=== PATIENT | male | born 1985 | race Two or more races ===

== ENCOUNTER 2023-03-13 15:28 | Outpatient (REF) | payer MEDICAID, SELFPAY ==
[2023-03-14 03:45] LABS: CT PCR NOT DETECTED (Not Detect.); NG PCR NOT DETECTED (Not Detect.)
== END 2023-03-13 15:29 | disposition home or self-care (01) ==
LOC: HO.HHCL 15:28
PROVIDERS: Visit Provider General Practice
DX: A64 Unspecified sexually transmitted disease (principal)
CPT/HCPCS: 0353U

== ENCOUNTER 2024-08-13 14:28 | Outpatient (REF) | payer MEDICAID, SELFPAY ==
[2024-08-13 16:35] LABS: Estimated Average Glucose 123 mg/dL; Hemoglobin A1C 164.8011 umol/L; Hemoglobin A1c % 5.9 % (<6.0); Total Hemoglobin (HGBA1C) 4031.6197 umol/L
--- OUTSIDE RECORDS SUMMARY | 2024-08-13 17:19 | XMS_ITS | Clinical Summary ---
Author Organization [facility] ity Address [address] [place] [address] Care Team Providers Care Medical Scientist Name Role Phone Unavailable Primary Care Provider Unavailabl e Social History Tobacco Use Types Packs/Day Years Used Date Smoking Tobacco: Never Assessed Sex and Gender Information Value Date Recorded Sex Assigned at Not on file Legal Sex Male 9:01 PM EST Gender Identity Not on file Sexual Orientation Not on file Plan of Treatment Health Maintenance Due Date Last Done Comments DTaP,Tdap,and Td Vaccines (1 - Tdap) 2002 Hepatitis B Vaccines (1 of 3 - 19+ 3-dose series) 2002 Cholesterol Screening (Lipid Panel) 05/19/2023 Depression Screening 05/19/2023 HIV Screening 05/19/2023 Hepatitis C Screening 05/19/2023 Social Influencers of Health Screening 05/19/2023 COVID-19 Vaccine (2023-2 5 season) 2023 Influenza Vaccine (Season Ended) 2024 HIB Vaccines Aged Out No longer eligi ble based on patient's age to complete this topic HPV Vaccines Aged Out No longer eligi ble based on patient's age to complete this topic Hepatitis A Vaccines Aged Out No long er eligible based on patient's age to complete this topic IPV Vaccines Aged Out No longer eligi ble based on patient's age to complete this topic MMR Vaccines Aged Out No longer eligi ble based on patient's age to complete this topic Meningococcal ACWY Vaccine Aged Out N o longer eligible based on patient's age to complete this topic Meningococcal B Vaccine Aged Out No l onger eligible based on patient's age to complete this topic Pneumococcal Vaccine: Pediat rics (0 to 5 Years) and At-Risk Patients (6 to 64 Years) Aged Out No longer eligible b ased on patient's age to complete this topic RSV Immunization Patients Un nicholas 20 months Aged Out No longer eligible b ased on patient's age to complete this topic Varicella Vaccines Aged Out No longer eligible based on patient's age to complete this topic
--- OUTSIDE RECORDS SUMMARY | 2024-08-13 17:19 | XMS_ITS | Clinical Summary ---
Author Organization [employer] Address [address] [facility] [address] [place] [address] Care Team Providers Care Plasma Table Operator Name Role Phone Diana Mckeon MD Primary Care Provider [phone] Allergies No known active allergies Medications * This document contains information received from the source organization and may not represent a complete record from that organization. albuterol 108 (90 Base) MCG/ACT inhalerIndicati ons:Wheezing Inhale 2 puffs every 6 (six) hours if needed for wheezing. 18 g 11 4 04/09/20 25 Active buPROPion XL (Wellbutrin XL) 150 MG 24 hr tablet take 1 tablet by oral route every day for mood stability 90 tablet 3 4 Active cyclobenzaprine (Flexeril) 5 MG tablet take 1 tablet by oral route 3 times every day for muscle pain/spasm 30 tablet 3 4 Active prazosin (Minipress) 1 MG capsule TAKE 1 CAPSULE BY MOUTH DAILY AT BEDTIME FOR anger. MAY INCREASE TO 3 CAPSULES DIRECTED 90 capsule 3 5 Active Diclofenac Sodium 1 % gel Apply thin layer by topical route (quantity as directed on package insert) to affected area of pain 3 times daily as needed. 50 g 3 5 Active naproxen (Naprosyn) 500 MG tablet Take 1 tablet (500 mg) by mouth every 12 (twelve) hours. With food 60 tablet 3 4 07/18/19 25 Discontinu ed(Ineffec tive) Active Problems Problem Noted Date Diagnosed Date Class 3 severe obesity with body mass index (BMI) of 45.0 to 49.9 in adult 04/22/2024 Assessment & Plan (07/22/2024 7:58 PM EDT): Reviewed options for weight loss medications and bariatric surgery He would prefer to start with changing eating habits and returning to daily bike riding PTSD (post-traumatic stress disorder) 08/31/2023 Assessment & Plan (09/06/2023 1:58 PM EDT): During IBH Consult Abdi presenting with depressed mood, loss of interests/pleasure , changes in sleep difficulty falling asleep, psychomotor retardation, trouble concentrating, thoughts of worthlessness or guilt, fatigue/loss of energy, inappropriate guilt , hopelessness, worthlessness , difficulty concentrating, excessive worry/anxiety, difficulty controlling worry, restless/keyed up/On edge, easily fatigued, difficulty concentrating/Mind going blank , and irritability, and Intrusive trauma memories and thoughts, Nightmares/night terrors, Avoidance of trauma reminders/triggers, Fear and distrust in relationships, Isolation from normal social supports, Fear of social judgement, and Difficulty with crowds for a period of 24+mo, for all symptoms in the context of family issues, financial concern, employment concern, recent move, and housing. Abdi reported feeling overwhelmed due to lack of support, he was incarcerated for 10 years and got out of [facility] two years ago. 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 Aware of strategies to keep himself busy but over the last months things have became more difficult due to having personal stressors. PLAN: (check all that apply) New/Additional Services needed PCP management Off-site services for Behavioral Health Integration Plan External OP therapy referral and OP psychiatry Referral Patient Self Plan Patient to utilize skills provided in intervention , Patient to reach out to [facility] team as needed, Comply with medication , Patient to engage in OP therapy , and Patient to reach out to [facility] as needed Severe episode of recurrent major depressive disorder, without psychotic features 08/31/2023 Assessment & Plan (07/22/2024 7:58 PM EDT): Declines medication trials today due to potential side effects of feeling drowsy or numb, wants to feel alert He was encouraged to call [facility], to continue brief interventions and get established with outpatient therapy Assessment & Plan (10/27/2023 9:44 AM EDT): Declines medication trials today due to potential side effects of feeling drowsy or numb, wants to feel alert He was encouraged to call [facility], to continue brief interventions and get established with outpatient therapy Assessment & Plan (09/06/2023 1:59 PM EDT): During IB Consult Abdi presenting with depressed mood, loss of interests/pleasure , changes in sleep difficulty falling asleep, psychomotor retardation, trouble concentrating, thoughts of worthlessness or guilt, fatigue/loss of energy, inappropriate guilt , hopelessness, worthlessness , difficulty concentrating, excessive worry/anxiety, difficulty controlling worry, restless/keyed up/On edge, easily fatigued, difficulty concentrating/Mind going blank , and irritability, and Intrusive trauma memories and thoughts, Nightmares/night terrors, Avoidance of trauma reminders/triggers, Fear and distrust in relationships, Isolation from normal social supports, Fear of social judgement, and Difficulty with crowds for a period of 24+mo, for all symptoms in the context of family issues, financial concern, employment concern, recent move, and housing. Abdi reported feeling overwhelmed due to lack of support, he was incarcerated for 10 years and got out of [facility] two years ago. 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 Aware of strategies to keep himself busy but over the last months things have became more difficult due to having personal stressors. PLAN: (check all that apply) New/Additional Services needed PCP management Off-site services for Behavioral Health Integration Plan External OP therapy referral and OP psychiatry Referral Patient Self Plan Patient to utilize skills provided in intervention , Patient to reach out to [facility] team as needed, Comply with medication , Patient to engage in OP therapy , and Patient to reach out to [facility] as needed Routine screening for STI (sexually transmitted infection) 04/03/2023 Anxiety 03/11/2023 03/11/2023 Assessment & Plan (09/06/2023 1:58 PM EDT): During IB Consult Abdi presenting with depressed mood, loss of interests/pleasure , changes in sleep difficulty falling asleep, psychomotor retardation, trouble concentrating, thoughts of worthlessness or guilt, fatigue/loss of energy, inappropriate guilt , hopelessness, worthlessness , difficulty concentrating, excessive worry/anxiety, difficulty controlling worry, restless/keyed up/On edge, easily fatigued, difficulty concentrating/Mind going blank , and irritability, and Intrusive trauma memories and thoughts, Nightmares/night terrors, Avoidance of trauma reminders/triggers, Fear and distrust in relationships, Isolation from normal social supports, Fear of social judgement, and Difficulty with crowds for a period of 24+mo, for all symptoms in the context of family issues, financial concern, employment concern, recent move, and housing. Abdi reported feeling overwhelmed due to lack of support, he was incarcerated for 10 years and got out of [facility] two years ago. 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 Aware of strategies to keep himself busy but over the last months things have became more difficult due to having personal stressors. PLAN: (check all that apply) New/Additional Services needed PCP management Off-site services for Behavioral Health Integration Plan External OP therapy referral and OP psychiatry Referral Patient Self Plan Patient to utilize skills provided in intervention , [facility] team as needed, Comply with medication , Patient to engage in OP therapy , and Patient to reach out to [facility] as needed Assessment & Plan (04/03/2023 6:53 AM EST): Continue therapy at [facility] Diagnosis not clear, could be bipolar, PTSD, substance-use induced anxiety I will continue to offer trial of medication if he agrees Continue Prasozin at nighttime for nightmares Assessment & Plan (03/11/2023 11:45 AM EST): Restart Wellbutrin and Prasozin Plan for BE when he comes to clinic 03/31/23 History of substance abuse 03/11/202303/11 Assessment & Plan (10/27/2023 9:40 AM EDT): Encouraged ongoing quitting of PCP, made aware of [facility] support group Assessment & Plan (03/11/2023 11:51 AM EST): Relapsed currently, working to find environments and situations where he is less likely to use PCP Morbid obesity 03/11/2023 03/11/2023 Assessment & Plan (10/27/2023 9:40 AM EDT): Check labs today, TSH, A1C, lipids, CMP Assessment & Plan (03/11/2023 11:45 AM EST): Walking, biking to exercise Foreign body under foreskin 03/11/2023 Assessment & Plan (03/11/2023 11:45 AM EST): Powell inserted while in long-term Continue to consider/plan for removal by urology Knee pain, bilateral 09/10/2021 Assessment & Plan (10/27/2023 9:40 AM EDT): Improving with activity and some weight loss Chronic back pain greater than 3 months duration 09/10/2021 Encounters Date Type Department Care Team Description 07/17/2024 3:15 PM EDT Office Visit [facility] [address] [place] [phone] Diana Mckeon MD Class 3 severe obesity with serious comorbidity and body mass index (BMI) of 45.0 to 49.9 in adult, unspecified obesity type (CMS/HCC) (Primary Dx); Sexually transmitted infection; Severe episode of recurrent major depressive disorder, without psychotic features (CMS/HCC); Dietary counseling; Exercise counseling; Routine screening for STI (sexually transmitted infection) 07/17/2024 Travel 07/05/2024 Population Health Risk Score [facility] () Department [address] [place] [id number] Provider, Population Health Generic 07/01/2024 Refill [facility] [address] [place] [address] [place], MD Brennon from Last 3 Months Immunizations Name Administration Dates Next Due Influenza, IIV3, injectable 05/13/2010 Social History Tobacco Use Types Packs/Day Years Used Date Smoking Tobacco: Former Cigarettes Passive Smoke Exposure: Never Tobacco Cessation:Counseling Given: Not Answered Comments:2 cigarettes daily Alcohol Use Standard Drinks/Week Comments Never 0 (1 standard drink = 0.6 oz pur e alcohol) Depression Answer Date Recorded Patient Health Questionnaire-9 Score 4 04/22/2024 Patient Health Questionnaire-9 Score 4 04/22/2024 Last PHQ-9: Questionnaire Data Not on file 1 Housing Stability Answer Date Recorded What is your housing situation today? I do not have housing (Staying with others, in a hotel, in a halfway, living outside on the street, on a beach, in a car, or in a park 04/22/[address] you li ve. Do you have problems with any of the following? None of the above 04/22/2024 Food Insecurity Answer Date Recorded Within the past 12 months, y ou worried that your food would run out before you got money to buy more: Never True 04/22/2024 Within the past 12 months,th e food you bought just didn't last and you didn't have enough money to get more: Never True Transportation Answer Date Recorded In the past 12 months, has l ack of transportation kept you from medical appts, meetings, work or from getting things needed for daily living? No 04/22/2024 Utilities Answer Date Recorded In the past 12 months, has t he electric, gas, oil or water company threatened to shut off services in your home? No 04/22/2024 Depression Answer Date Recorded Patient Health Questionnaire-2 Score 1 04/22/2024 Internet Access Answer Date Recorded Internet Access Q1 Yes 04/22/2024 Internet Access Q2 Not on file 04/22/2024 Sex and Gender Information Value Date Recorded Sex Assigned at Male 02/21/2022 10:40 AM EDT Legal Sex Male 10:40 AM EDT Gender Identity Male 02/21/2022 10:40 AM EDT Sexual Orientation Choose not to disclose 2021 10:40 AM EDT Last Filed Vital Signs Vital Sign Reading Time Taken Comments Blood Pressure 152/89 07/17/2024 3:30 PM EDT Pulse 103 07/17/2024 3:30 PM EDT Temperature 36.4 ??C (97.5 ??F) 07/17/2024 3:30 PM ED T Respiratory Rate 18 07/17/2024 3:30 PM EDT Oxygen Saturation 96% 10/25/2023 2:48 PM EDT Inhaled Oxygen Concentration - - Weight 124 kg (272 lb 6.4 oz) 07/17/2024 3:30 PM EDT Height 162.6 cm (5' 4 ) 07/17/2024 3:30 PM EDT Body Mass Index 46.76 07/17/2024 3:30 PM EDT Plan of Treatment Health Maintenance Due Date Last Done Comments DTaP/Tdap/Td Vaccines (1 - Tdap) 2002 Hepatitis B Vaccines (1 of 3 - 19+ 3-dose series) 2002 COVID-19 Vaccine (1 - 2023-2 5 season) 2023 Influenza Vaccine (#1) 2023 05/13/2010 Depression Screening 04/22/2025 04/22/2024, 04/22/2024 SDOH Screening 04/22/2025 04/22/2024 Alcohol/Substance Use Screening 07/17/2025 07/17/2024 Tobacco Screening 07/17/2025 07/17/2024 Family Planning (PISQ) 07/22/2025 07/22/2024 Diabetes: Hemoglobin A1C 08/13/2025 025, 09/10/2021 Lipid Panel 09/10/2026 09/10/2021 Zoster Vaccines (1 of 2) 2033 RSV Patients and Patients Aged 60 years or older (1 - 1-dose 75+ series) 2058 HIV Screening Completed 09/10/2021 Hepatitis C Screening Completed 09/10/2021 HIB Vaccines Aged Out No longer eligi [...] patient's age to complete this topic Meningococcal Vaccine Aged Out No claudette jarod eligible based on patient's age to complete this topic Pneumococcal Vaccine: Pediatrics (0 to 5 Years) and At-Risk Patients (6 to 49) Years) Aged Out No longer eligible b ased on patient's age to complete this topic RSV under 20 months Aged Out No longe r eligible based on patient's age to complete this topic Rotavirus Vaccines Aged Out No longer eligible based on patient's age to complete this topic Procedures Procedure Name Priority Date/Time Associated Diagnosis Comments HEMOGLOBIN A1C Routine 08/13/2024 2:31 PM EDT Morbid obesity (CMS/HCC) ZZZ HISTORICAL HEPATITIS C AB W/REFL TO HCV RNA, QN, PCR Routine 09/10/2021 9:49 AM EDT HIV 1/2 ANTIGEN/ANTIBODY, FOURTH GENERATION W/RFL Routine 09/10/2021 9:49 AM EDT LIPID PANEL, STANDARD Routine 09/10/2021 9:49 AM EDT from Last 3 Months or Most Recently Relevant to Health Maintenance Results * Hemoglobin A1c (08/13/2024 2:31 PM EDT) Hemoglobin A1c 5.9 <6.0 % [facility] Comment:Hemoglobin A1C Refer ence Range Adults: 4.8 - 6.0 % Non diabetic: < 6.0 % Goal: < 7.0 %Additional Action Suggested: > 8.0 %Note: Hemoglobin A1c results are invalid for patients with abnormal amounts of HbF. Blood transfusions may impact the HbA1c concentration in the patient sample. Estimated Average Glucose 123 mg/dL [facility] Comment:eAG = Estimated ave rage glucose which is %A1C expressed asaverage glucose, using the formula of the [id number] Glucose study (ADAG), Diabetes Care, Vol.31,#8,Nov. 2007 Blood Venous blood specimen / Unknown 08/13/2024 2:31 PM EDT 08/13/2024 4:02 PM EDT us Diana Mckeon MD LAB BLOOD ORDERABLES Final Res ult [facility] [address] [place] [address] [phone] * HEPATITIS C AB W/REFL TO HCV RNA, QN, PCR (09/10/2021 9:49 AM EDT) HEPATITIS C ANTIBODY NON-REACT RODRIGUEZ NON-REACT RODRIGUEZ [facility] INDEX 0.05 <1.00 [facility] Comment: ?? HCV antibody was non-reactive. There is no laboratory ?? evidence of HCV infection. ?? In most cases, no further action is required. However, if recent HCV exposure is suspected, a test for HCV RNA (test code 64799) is suggested. ?? For additional information please refer to http://[employer]/faq/PQL69o2 (This link is being provided for informational/ educational purposes only.) ?? 09/10/2021 9:49 AM EDT Diana Mckeon MD HISTORICAL/NON ORDERABLE LABS Final Result Performing Organization Address [facility] de Phone Number [facility] [place] [address], [place] * HIV 1/2 ANTIGEN/ANTIBODY,FOURTH GENERATION W/RFL (09/10/2021 9:49 AM EDT) HIV-1/2 ANTIGEN AND ANTIBODIES, 4TH GENERATION W/ REFLEX NON-REACT RODRIGUEZ NON-REACT RODRIGUEZ [facility] Comment: HIV-1 antigen and HIV-1/HIV-2 antibodies were not detected. There is no laboratory evidence of HIV infection. ?? PLEASE NOTE: This information has been disclosed to you from records whose confidentiality may be protected by state law. ??If your state requires such protection, then the state law prohibits you from making any further disclosure of the information without the specific written consent of the person to whom it pertains, or as otherwise permitted by law. A general authorization for the release of medical or other information is NOT sufficient for this purpose. ? For additional information please refer to http://[employer]/faq/URB130 (This link is being provided for informational/ educational purposes only.) ? The performance of this assay has not been clinically validated in patients less than 2 years old. ?? 09/10/2021 9:49 AM EDT Diana Mckeon MD LAB BLOOD ORDERABLES Final Res ult Performing Organization Address [facility] de Phone Number [facility] [address] * LIPID PANEL, STANDARD (09/10/2021 9:49 AM EDT) Chol/HDLC Ratio 3.7 <5.0 (calc) [facility] Cholesterol, Total 157 <200 mg/dL [facility] HDL Cholesterol 43 > OR = 40 mg/dL [facility] LDL Cholesterol 94 mg/dL (calc) [facility] Comment: Reference range: <100 ?? Desirable range <100 mg/dL for primary prevention; ?? <70 mg/dL for patients with CHD or diabetic patients ?? with > or = 2 CHD risk factors. ?? LDL-C is now calculated using the Inoc[employer]io ?? calculation, which is a validated novel method providing ?? better accuracy than the Friedewald equation in the ?? estimation of LDL-C. ?? Onel CORTES et al. DEIRDRE. 2013;310(19): 0780-9983 ?? (http://education.[employer]le.[employer]/faq/TOZ701) Non-HDL Cholesterol 114 <130 mg/dL (calc) [facility] Comment: For patients with diabetes plus 1 major ASCVD risk ?? factor, treating to a non-HDL-C goal of <100 mg/dL ?? (LDL-C of <70 mg/dL) is considered a therapeutic ?? option. Triglycerides 107 <150 mg/dL [facility] 09/10/2021 9:49 AM EDT us Diana cMkeon MD LAB BLOOD ORDERABLES Final Res ult [facility] [address] from Last 3 Months or Most Recently Relevant to Health Maintenance Insurance [facility] C3 Care Teams Plasma Table Operator Relationship Specialty Start Date End Date Diana Mckeon MD [address] [place] [id number] PCP - General Family Medicine 07/23/21
[2024-08-13 20:02] LABS: Alanine Aminotransferase 30 U/L (0-40); Albumin Level 4.2 g/dL (3.5-5.0); Anion Gap 14 (12-20); Aspartate Amino Transferase 30 U/L (5-37); Bilirubin Total 0.4 mg/dL (0.0-1.0); Blood Urea Nitrogen 22 mg/dL (9-16); Calcium 9.1 mg/dL (8.4-10.2); Carbon Dioxide 24 mmol/L (22-29); Chloride 105 mmol/L (96-108); Cholesterol 205 mg/dL (<200); Estimated Glomerular Filt Rate > 60; Glucose Random 74 mg/dL (60-115); HDL Cholesterol 42 mg/dL (>40); LDL Cholesterol Calculated 131 mg/dL (<100); Potassium 3.9 mmol/L (3.3-5.1); Sodium 139 mmol/L (135-145); Total Protein 7.4 g/dL (6.5-8.0); Triglycerides 162 mg/dL (<150)
[2024-08-13 20:18] LABS: Alkaline Phosphatase 157 U/L (39-117); TSH reflex Free T4 1.15 uIU/mL (0.32-4.0)
[2024-08-14 08:45] LABS: HIV AB/AG Nonreactive (Nonreactive); HIV Num 1 0.14 S/CO (0.00-0.99); ~HepC Num1 0.24 S/CO (0.00-0.79); ~Hepatitis C Antibody Nonreactive (Nonreactive)
[2024-08-14 10:28] LABS: CT PCR NOT DETECTED (Not Detect.); NG PCR NOT DETECTED (Not Detect.)
[2024-08-15 09:44] LABS: RPR Rapid Plasma Reagin NON-REACTIVE (NON-REACTIVE)
== END 2024-08-13 14:29 | disposition home or self-care (01) ==
LOC: HO.HHCL 14:28
PROVIDERS: Visit Provider General Practice
DX: A64 Unspecified sexually transmitted disease (principal); E66.01 Morbid (severe) obesity due to excess calories
CPT/HCPCS: 80053; 80061; 83036; 84443; 86592; 86803; 87389; 87491; 87591